=== PATIENT | female | born 1955 | race Caucasian/White ===

== ENCOUNTER 2024-04-28 03:48 | Emergency (ER) | payer OTHER ==
[~2024-04-28] VITALS: Ht 162.6 cm; Wt 87.6 kg
[2024-04-28 04:30] LABS: BASOPHILS 2.4 % (0-2); EOSINOPHILS 5.6 % (0-6); HEMATOCRIT 41.9 % (35.0-50.0); HEMOGLOBIN 13.6 g/dL (12.0-18.0); LYMPHOCYTES 8.2 % (24-44); MCHC 32.5 g/dl (30-36); MCV 70.9 fl (81-99); MONOCYTES 3.5 % (0-12); NEUTROPHILS 80.3 % (39-80); PLATELET COUNT 494 K/uL (140-440); RBC 5.91 M/ul (4.3-5.7); RDW 19.9 (10.5-15.0)
[2024-04-28 04:39] LABS: ALBUMIN 3.4 g/dL (3.4-5.0); ALBUMIN/GLOBULIN RATIO 0.97 (1.1-2.4); ANION GAP 15.2 (7-21); BILIRUBIN, TOTAL 0.4 ng/dL (0.2-1.0); BUN/CREATININE RATIO 18.57 (6.0-28.6); CALCIUM 7.9 mg/dL (8.5-10.1); CREATININE, SERUM 0.7 mg/dL (0.55-1.02); POTASSIUM 3.2 mmol/L (3.5-5.1); PROTEIN, TOTAL 6.9 g/dL (6.4-8.2)
[2024-04-28] MEDS ORDERED: HYDROCODONE BIT/ACETAMINOPHEN 5/325 MG 1 TAB HOME.PACK PO PRN (06:00)
[2024-04-28] MEDS ORDERED: HYDROCODON-ACE1 EA10 PO (06:01)
[2024-04-28 06:19] VITALS: BP 138/77
== END 2024-04-28 06:20 | disposition home or self-care (01) ==
LOC: ED 03:48
PROVIDERS: Emergency Medicine
DX: S62.002A Unspecified fracture of navicular [scaphoid] bone of left wrist, initial encounter for closed fracture (principal); S40.012A Contusion of left shoulder, initial encounter; R07.81 Pleurodynia; W19.XXXA Unspecified fall, initial encounter; R91.1 Solitary pulmonary nodule; I10 Essential (primary) hypertension; Z79.01 Long term (current) use of anticoagulants; Z91.048 Other nonmedicinal substance allergy status
CPT/HCPCS: 36415; 70450; 71260; 72125; 74177; 80053; 85025; 99284-25; A9270; Q9967

== ENCOUNTER 2024-05-31 11:39 | Emergency (ER) | payer OTHER ==
[~2024-05-31] VITALS: Ht 162.6 cm; Wt 86.0 kg
[~2024-05-31 11:39] MED LIST: HYDROCODON-ACE1 EA10 PO
[2024-05-31] MEDS ORDERED: LIPITOR80 MG GT (11:55)
[2024-05-31] MEDS ORDERED: FEOSOL325 MG PO (11:55)
[2024-05-31] MEDS ORDERED: NORVASC10 MG PO (11:56)
[2024-05-31] MEDS ORDERED: HYDREA500 MG PO (11:56)
[2024-05-31] MEDS ORDERED: LOSARTAN POTASS50 MG PO (11:56)
[2024-05-31] MEDS ORDERED: LEVOTHYROXINE150 MC1 PO (11:57)
[2024-05-31] MEDS ORDERED: ELIQUIS5 MG PO (11:57)
[2024-05-31] MEDS ORDERED: OMEPRAZOLE20 MG PO (11:57)
[2024-05-31] MEDS ORDERED: COREG25 MG PO (11:58)
[2024-05-31] MEDS ORDERED: DILANTIN100 MG PO (11:59)
[2024-05-31 12:23] VITALS: BP 144/66
[2024-05-31] MEDS ORDERED: BACTRIM DS TAB1 EACH PO (12:23)
[2024-05-31] MEDS ORDERED: TRIMETHOPRIM/SULFAMETHOXAZOLE 1 EA TAB PO ONE (12:30)
== END 2024-05-31 12:32 | disposition home or self-care (01) ==
LOC: ED 11:39
DX: L03.116 Cellulitis of left lower limb (principal); I10 Essential (primary) hypertension; E78.5 Hyperlipidemia, unspecified; Z88.8 Allergy status to other drugs, medicaments and biological substances; Z79.899 Other long term (current) drug therapy; Z79.01 Long term (current) use of anticoagulants; Z79.890 Hormone replacement therapy
CPT/HCPCS: 99282; A9270